=== PATIENT | female | born 1970 | race Caucasian/White ===

== ENCOUNTER 2016-09-23 19:06 | Emergency (ER) | payer OTHER ==
[~2016-09-23] VITALS: Ht 162.6 cm; Wt 170.9 kg
[~2016-09-23 19:06] MED LIST: ALBUTEROL SULF8.5 GM IH; ATROVENT 00.5 MG/2.5 IH; DUONEB 2.5-0.5 M3 ML IH; FLOVENT IH; GABAPENTIN300 MG PO; HYDROCODON-ACE1 EAC7 PO; LASIX40 MG PO; MEDROXYPROGESTE10 MG PO; MELOXICAM15 MG PO; MOTRIN800 MG PO; OXYCODONE-ACET1 EACH PO; PROAIR HFA8.5 GM IH; PROVENTIL,2.5 MG/0.5 IH; PROVENTIL,2.5 MG/3 M IH; SPIRIVA1 INHALATI IH; TOPIRAMATE50 MG PO
[2016-09-23 19:07] VITALS: BP 159/95
[2016-09-23 21:46] LABS: HEMATOCRIT 44.8 % (36.0-46.0); MCH 27.7 PG (29.0-34.0); MCHC 30.6 G/DL (30.0-36.0); MCV 90.7 FL (83-99); MEAN PLAT.VOLUME 9.1 uM^3 (9.5-12.4); PLATELET COUNT 295 K/uL (156-360); RBC DIS.WIDTH-CV 14.5 % (11.8-14.6); RBC DIS.WIDTH-SD 48.3 % (39-53); RED BLOOD COUNT 4.94 M/uL (3.80-5.20); WHITE BLOOD COUNT 9.8 K/uL (4.1-10.2)
[2016-09-23 21:57] LABS: CHLORIDE 101 mEq/L (99-109); POTASSIUM 4.5 mEq/L (3.7-5.4); SODIUM 140 mEq/L (136-147)
[2016-09-23 21:58] LABS: GLUCOSE 174 mg/dL (70-99)
[2016-09-23 22:00] LABS: ANION GAP 9 MEQ/L (2-14)
[2016-09-23 22:02] LABS: GFR ESTIMATE (CALCULATED) > 59 mL/min/
[2016-09-23 22:03] LABS: UREA NITROGEN (BUN) 15 mg/dL (9-23)
[2016-09-24] MEDS ORDERED: OXYCODONE HCL10 MG PO (21:11)
[2016-09-24] MEDS ORDERED: GABAPENTIN300 MG PO (21:12)
[2016-09-24] MEDS ORDERED: CELEBREX100 MG PO (21:13)
[2016-09-24] MEDS ORDERED: METFORMIN HCL500 MG PO (21:13)
[2016-09-24] MEDS ORDERED: OXYGEN MC (21:14)
== END 2016-09-23 22:42 | disposition home or self-care (01) ==
LOC: EME 19:06
PROVIDERS: Physician Assistant
DX: L03.115 Cellulitis of right lower limb (principal); L03.116 Cellulitis of left lower limb; L02.01 Cutaneous abscess of face; J45.909 Unspecified asthma, uncomplicated; J44.9 Chronic obstructive pulmonary disease, unspecified; G89.29 Other chronic pain; I25.2 Old myocardial infarction; K21.9 Gastro-esophageal reflux disease without esophagitis; F17.200 Nicotine dependence, unspecified, uncomplicated
CPT/HCPCS: 80048; 85027; J0696; J7050